=== PATIENT | female | born 2000 | race Caucasian/White ===

== ENCOUNTER 2024-07-12 10:47 | Inpatient (IN) | payer OTHER ==
[2024-07-12] MEDS: ELECTROLYTE-148 SOLN 1,000 ML IV SCH (12:45)
[2024-07-12] MEDS ORDERED: OXYTOCIN 30 UNITS in 0.9% NS 30 UNIT/500 ML INFUS.BAG IVPB ONE (13:13)
[2024-07-12 13:15] LABS: ABSOLUTE IMMATURE GRANULOCYTES 0.11 x10^3/uL (0.0-0.031); BASOPHILS # 0.04 x10^3/uL (0.01-0.08); HEMATOCRIT 34.3 % (34.1-44.9); HEMOGLOBIN 11.8 g/dL (11.2-15.7); MCHC 34.4 g/dl (32.2-35.5); MEAN CELL VOLUME 86.2 fl (79.4-94.8); MEAN PLT VOLUME 11.2 fl (9.4-12.3); MONOCYTE # 1.28 x10^3/uL (0.24-0.86); PLATELET COUNT 219 x10^3/uL (182-369); RDW 13.5 % (12.1-16.5)
[2024-07-12] MEDS: OXYTOCIN 30 UNITS in 0.9% NS 30 UNIT/500 ML INFUS.BAG IVPB SCH (13:20)
[2024-07-12 13:22] LABS: INR 1.16 (0.83-1.09); PROTHROMBIN TIME (PATIENT) 12.6 SEC (9.7-13.0)
[2024-07-12] MEDS ORDERED: FENTANYL/BUPIVACAINE/NS/PF - PCEA - 50 ML DISP.SYRIN EP ONE ×3 (13:32→21:05)
[2024-07-12] MEDS: PENICILLIN G POTASSIUM 5,000,000 (5Mm) UNIT VIAL IVPB SCH (13:45)
[2024-07-12 13:49] LABS: POTASSIUM 3.2 mmol/L (3.5-5.1)
[2024-07-12 13:50] LABS: CALCIUM 8.2 mg/dL (8.5-10.1)
[2024-07-12 13:55] LABS: CREATININE 0.8 mg/dL (0.55-1.3)
[2024-07-12] MEDS: FENTANYL/BUPIVACAINE/NS/PF - PCEA - 50 ML DISP.SYRIN EP SCH (14:00)
[2024-07-12] MEDS ORDERED: NALOXONE HCL 0.4 MG/ML VIAL IVPUSH PRN (14:24)
[2024-07-12] MEDS ORDERED: PENICILLIN G POTASSIUM 5,000,000 UNIT/250 ML BAG IVPB ONE (14:34)
[2024-07-12 14:46] VITALS: BMI 26.9
[2024-07-12] MEDS: PENICILLIN G POTASSIUM 5,000,000 UNIT/250 ML BAG IVPB ONE (14:49)
[2024-07-12] MEDS ORDERED: PENICILLIN G POTASSIUM 2,500,000 UNIT in SODIUM CHLORIDE 250 ML IVPB SCH (18:00)
[2024-07-12] MEDS: PENICILLIN G POTASSIUM 2,500,000 UNIT in SODIUM CHLORIDE 250 ML IVPB SCH (18:50)
[2024-07-13] MEDS ORDERED: FENTANYL/BUPIVACAINE/NS/PF - PCEA - 50 ML DISP.SYRIN EP ONE ×6 (02:41→12:56)
[2024-07-13] MEDS ORDERED: OXYTOCIN 20 UNITS in 0.9% NS 20 UNIT/1,000 ML INFUS.BAG IV ONE (14:14)
[2024-07-13 17:03] VITALS: RESP 18
[2024-07-13] MEDS: OXYTOCIN 20 UNITS in 0.9% NS 20 UNIT/1,000 ML INFUS.BAG IV SCH (17:35)
[2024-07-13] MEDS: METHYLERGONOVINE MALEATE 0.2 MG/1 ML AMP IM PRN (17:45)
[2024-07-13 17:51] LABS: CORD HCO3 16.5 mmHg (20-29); CORD PCO2 34.5 mmHg (30-78); CORD pH 7.297 (7.14-7.44)
[2024-07-13] MEDS ORDERED: BENZOCAINE 28 GM HEMORRHOIDAL OINTMENT TP PRN (18:45)
[2024-07-13] MEDS ORDERED: BISACODYL 10 MG SUPP.RECT RC PRN (18:45)
[2024-07-13] MEDS ORDERED: WITCH HAZEL 50% (TUCKS) 40 PAD/JAR PAD TP PRN (18:45)
[2024-07-13] MEDS ORDERED: oxyCODONE HCL 5 MG TABLET PO PRN (18:45)
[2024-07-13] MEDS: IBUPROFEN 600 MG TABLET (FP) PO PRN (22:42)
[2024-07-13] MEDS: PENICILLIN G POTASSIUM 5,000,000 (5Mm) UNIT VIAL IVPB ONE (23:39)
[2024-07-14 07:59] LABS: ABSOLUTE IMMATURE GRANULOCYTES 0.14 x10^3/uL (0.0-0.031); BASOPHILS # 0.06 x10^3/uL (0.01-0.08); EOSINOPHIL % 0.5 % (0.7-5.8); EOSINOPHILS # 0.08 x10^3/uL (0.04-0.36); HEMATOCRIT 30.5 % (34.1-44.9); HEMOGLOBIN 10.4 g/dL (11.2-15.7); MCHC 34.1 g/dl (32.2-35.5); MEAN CELL VOLUME 86.4 fl (79.4-94.8); MEAN PLT VOLUME 10.9 fl (9.4-12.3); MONOCYTE # 1.26 x10^3/uL (0.24-0.86); MONOCYTE % 7.2 % (4.7-12.5); PLATELET COUNT 206 x10^3/uL (182-369); RDW 13.7 % (12.1-16.5)
[2024-07-14] MEDS: PRENATAL VITAMINS W/ FOLIC ACID TABLET (FP) PO SCH (09:08)
[2024-07-14] MEDS: FERROUS SO4 325 MG TABLET (FP) PO SCH (09:08)
[2024-07-14] MEDS: ACETAMINOPHEN 325 MG TABLET (FP) PO PRN (12:32)
[2024-07-14] MEDS: BENZOCAINE 20% 57 GM BOTTLE TP PRN (12:32)
[2024-07-14] MEDS: diphenhydrAMINE HCL 25 MG CAPSULE (FP) PO PRN (21:45)
[2024-07-14] MEDS: SENNOSIDES/DOCUSATE COMBO (SENNA PLUS) TABLET (UD) PO PRN (21:46)
[2024-07-15 07:43] LABS: HEMATOCRIT 29.7 % (34.1-44.9); HEMOGLOBIN 9.9 g/dL (11.2-15.7); MCHC 33.3 g/dl (32.2-35.5); MEAN CELL VOLUME 87.9 fl (79.4-94.8); MEAN PLT VOLUME 10.7 fl (9.4-12.3); PLATELET COUNT 257 x10^3/uL (182-369); RDW 13.8 % (12.1-16.5)
[2024-07-15 10:35] LABS: POC NITRAZINE POS
[2024-07-15 12:39] VITALS: BP 125/79; PULSE 80; TEMP 98.2
== END 2024-07-15 16:40 | disposition home or self-care (01) | DRG 560 ==
LOC: JDEL 10:47 → JLDR 11:50 → J3W 07-13 20:25
PROVIDERS: ADMIT Obstetrics & Gynecology; ATTEND Obstetrics & Gynecology
PROC: 10E0XZZ Delivery of Products of Conception, External Approach (ICD-10-PCS; principal; 2024-07-13)
PROC: 0W8NXZZ Division of Female Perineum, External Approach (ICD-10-PCS; 2024-07-13)
DX: O99.824 Streptococcus B carrier state complicating childbirth (principal); Z3A.39 39 weeks gestation of pregnancy; O26.893 Other specified pregnancy related conditions, third trimester; R21 Rash and other nonspecific skin eruption; D72.829 Elevated white blood cell count, unspecified; Z37.0 Single live birth
CPT/HCPCS: 36415; 36600; 59409; 80048; 82803; 83986-QW; 85025; 85027; 85610; 85730; 86780; 86850; 86900; 86901; 87040